=== PATIENT | male | born 1980 | race Asian ===

== ENCOUNTER 2019-12-29 14:27 | Outpatient (CLI) | payer OTHER ==
[2019-12-29 15:27] VITALS: BP 108/78
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
== END 2019-12-29 14:28 | disposition home or self-care (01) ==
LOC: SC 14:27
PROVIDERS: ATTEND Nurse Practitioner Family
DX: R06.83 Snoring (principal); G47.10 Hypersomnia, unspecified; R53.83 Other fatigue; R06.81 Apnea, not elsewhere classified; G47.8 Other sleep disorders; E66.3 Overweight; Z68.29 Body mass index [BMI] 29.0-29.9, adult
CPT/HCPCS: 99203; 99212

== ENCOUNTER 2020-02-03 13:03 | Outpatient (CLI) | payer OTHER | END 2020-02-03 13:04 | disposition home or self-care (01) | LOC: SC 13:03 | PROVIDERS: ATTEND Nurse Practitioner Family | DX: R09.02 Hypoxemia (principal); G47.8 Other sleep disorders; G47.10 Hypersomnia, unspecified; R53.83 Other fatigue; R06.83 Snoring; R06.81 Apnea, not elsewhere classified; E66.3 Overweight; Z68.29 Body mass index [BMI] 29.0-29.9, adult | CPT/HCPCS: 95806 ==

== ENCOUNTER 2020-02-07 13:12 | Outpatient (CLI) | payer OTHER ==
--- NOTE | 2020-02-07 13:43 | SLEEP CARE CONSULTATION ---
Information from patient questionnaire entered by Heather Hawk. I have reviewed and concur with the information entered by Heather Hawk. This document represents the service I personally performed and the decisions made by , Jennifer Medrano ARNP. History of Present Illness Service Date and Time: 02/07/2020 1312 Initial [place] Sleepiness Scale score: 19 (in 2020) Current [place] Sleepiness Scale score: 21 Additional HPI information: ARCHIVAL LAURENTE returns for follow up and results of the recently performed home sleep study. The patient was informed of the following findings: No significant sleep disordered breathing with an average AHI of 1.5 and darinel oxygen saturation of 87%. I explained the pathophysiology behind obstructive sleep apnea. Patient does not have sleep apnea and was advised how weight gain could increase the risk of developing sleep apnea in the future. Patient has moderate snoring. Snoring can be reduced by weight loss. Weight loss is best achieved with diet consult. Patient instructed to contact PCP for referral. Snoring can also be treated with an oral appliance from a dentist. Advised to check insurance coverage. In addition, an ENT evaluation can be do to see if other treatment is indicated. Patient counseled not drink alcohol less than 4 hours before bedtime as it can increase snoring and apnea. Patient was cautioned about risks of drowsy driving until sleepiness symptoms resolve. Sleep Study - Results Type of Sleep Study: Home sleep study Prior sleep studies: No Polysomnography/Home Sleep Study results: Physician Impression: The quality of the study is good. The length of the study is adequate (> 240 minutes). Please also see the tabulated and graphic data. 1. No significant sleep-disordered breathing, with an AHI of 1.5/hr and darinel SaO2 of 87%. During the study, the patient had 2 apneas (2 obstructive, 0 central, 0 mixed) and 9 hypopneas. The longest episode lasted 34.5 seconds. The patient slept adequately in supine position (supine AHI was 1.8 and non-supine, 0.81). 2. Hypoxemia (ICD-10 R09.02), minimal, with the lowest oxygen saturation of 87 % and 0.4 minutes with SaO2 under 90%. Baseline oxygen saturation was normal (Average oxygen saturation was 94%). Allergies and Home Medications Drug allergies reviewed: Yes (NKDA) Home medication list reviewed: Yes (no changes) Review of Systems Review of systems same as previous: Yes (no changes) Physical Exam Heart Rate: 74 O2 Saturation: 99 Height: 5 ft 6 in Weight: 185 lb Body Mass Index: 29.8 BMI Classification: Overweight Impression and Plan 1. Suspected Obstructive Sleep Apnea-Hypopnea Syndrome, as suggested by a history of loud and irregular snoring, observed cessation of breath while asleep, gasping or choking in sleep, frequent awakening during the night, unrefreshed sleep, and excessive daytime sleepiness. His HST was negative for sleep apnea but patient did not feel it was a good night, that it was fitting right or working. His told him that he did not snore very much at all that night. He would like to have an in lab polysomnography to confirm. He is leaving for [employer] on the of this month and hopes we can get it done in the next week. We will try, but have a full schedule and he will have to hope for a cancellation. 2. Snoring but no significant sleep disordered breathing. Patient advised that often weight loss will reduce snoring as well as apnea risk. An oral appliance can also be used for snoring. This would require a dental consultation. Patient cautioned not to use other online appliances as can cause bite issues. A list of accredited dentists in area and one local dentist who makes oral appliances given. Patient is advised to check if insurance will cover. An ENT consult can also be helpful to determine if any other treatment is an option. * Schedule in lab polysomnography +- manual CPAP titration study. * Avoid long distance driving or driving when feeling sleepy. * Avoid alcohol, sedative and muscle relaxant around bedtime. * Attempt to lose weight. * Review instructions provided by trained office staff on how to prepare for the sleep study. * Return for follow-up after sleep study completed. Counseling Topics: Weight loss health impact Visit Type: In Office Time Spent with Patient (minutes): 20 Provider Statement: I spent 100% of the Face to Face Visit with the patient with greater than 50% spent counseling the patient and coordination of care.
== END 2020-02-07 13:13 | disposition home or self-care (01) ==
LOC: SC 13:12
PROVIDERS: ATTEND Nurse Practitioner Family
DX: R06.83 Snoring (principal); R09.02 Hypoxemia; G47.10 Hypersomnia, unspecified; R53.83 Other fatigue; G47.8 Other sleep disorders; R06.81 Apnea, not elsewhere classified; E66.3 Overweight; Z68.29 Body mass index [BMI] 29.0-29.9, adult
CPT/HCPCS: 99212; 99213